=== PATIENT | male | born 1995 | race American Indian/Alaskan Native ===

== ENCOUNTER 2018-08-03 21:39 | Emergency (ER) | payer SELFPAY ==
[2018-08-03] MEDS ORDERED: BENADRYL IV ONE (22:51)
[2018-08-03] MEDS ORDERED: PEPCID IV ONE (22:51)
[2018-08-03] MEDS ORDERED: SOLU-Medrol IV ONE (22:51)
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
[2018-08-04 00:59] VITALS: BP 129/81
== END 2018-08-04 01:06 | disposition home or self-care (01) ==
LOC: ED 21:39
DX: T78.40XA Allergy, unspecified, initial encounter (principal); L29.9 Pruritus, unspecified; J45.909 Unspecified asthma, uncomplicated; F17.200 Nicotine dependence, unspecified, uncomplicated; F12.10 Cannabis abuse, uncomplicated; X58.XXXA Exposure to other specified factors, initial encounter
CPT/HCPCS: 96374; 96375; 99291; J1200; J2930

== ENCOUNTER 2020-03-25 09:20 | Emergency (ER) | payer SELFPAY ==
[2020-03-25 10:02] VITALS: BP 119/63
[2020-03-25] MEDS ORDERED: HYDROcodone/ACETAMINOPHEN 10-325MG TAB PO ONE (11:24)
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
== END 2020-03-25 12:38 | disposition home or self-care (01) ==
LOC: ED 09:20
DX: S13.4XXA Sprain of ligaments of cervical spine, initial encounter (principal); S29.012A Strain of muscle and tendon of back wall of thorax, initial encounter; S00.03XA Contusion of scalp, initial encounter; S20.212A Contusion of left front wall of thorax, initial encounter; J45.909 Unspecified asthma, uncomplicated; Z88.6 Allergy status to analgesic agent; Z79.899 Other long term (current) drug therapy; V49.59XA Passenger injured in collision with other motor vehicles in traffic accident, initial encounter; Y92.410 Unspecified street and highway as the place of occurrence of the external cause; Y93.89 Activity, other specified; Y99.8 Other external cause status
CPT/HCPCS: 70450; 72070; 72125

== ENCOUNTER 2021-09-13 14:45 | Emergency (ER) | payer OTHER ==
[2021-09-13 15:37] VITALS: BP 134/76
[2021-09-13] MEDS ORDERED: diphenhydrAMINE 50 MG/ML VIAL IM ONE (15:52)
[2021-09-13] MEDS ORDERED: dexAMETHasone 4 MG/ML VIAL IM STA (15:52)
--- NOTE | 2021-09-13 16:08 | Emergency Department Report ---
ED General Adult HPI - General Chief complaint: Sore Throat Stated complaint: OBJECT STUCK IN THROAT Time Seen by Provider: 09/13/21 15:50 Source: patient Mode of arrival: Ambulatory Limitations: No Limitations - History of Present Illness Initial comments: 26-year-old -Al[place]ian male patient presents with complaints of possible turkey bone being lodged in his throat today. He states he has pain with swallowing and with breathing in his throat. No shortness of breath per patient, swelling, or fever/chills/sweats. He rates his pain as a 7/10 in severity. Known drug allergies include aspirin. Past medical history includes asthma Severity scale (0 -10): 5 - Related Data Previous Rx's Medication Instructions Recorded Last Taken Type Famotidine [Pepcid] 40 mg PO QHS #5 tablet 08/04/18 Unknown Rx Prednisone [predniSONE 10 mg 10 mg PO .TAPER #1 tab.ds.pk 08/04/18 Unknown Rx (6-Day Pack, 21 Tabs)] diphenhydrAMINE [Benadryl CAP] 25 mg PO Q8HR PRN #20 capsule 08/04/18 Unknown Rx Acetaminophen [Acetaminophen 8 650 mg PO Q8H PRN #12 tablet.er 03/25/20 Unknown Rx Hour] Cyclobenzaprine [Flexeril] 10 mg PO QHS PRN #10 tablet 03/25/20 Unknown Rx Famotidine [Pepcid] 20 mg PO BID 7 Days #14 tablet 09/13/21 Unknown Rx predniSONE [Deltasone] 20 mg PO BID 2 Days #4 tab 09/13/21 Unknown Rx traMADoL [Ultram 50 MG tab] 50 mg PO Q6HR PRN #6 tablet 09/13/21 Unknown Rx Allergies Allergy/AdvReac Type Severity Reaction Status Date / Time aspirin Allergy Shortness Verified 09/13/21 15:30 of Breath ED Review of Systems ROS: Stated complaint: OBJECT STUCK IN THROAT Other details as noted in HPI Constitutional: denies: chills, fever, malaise ENT: throat pain Respiratory: denies: cough, shortness of breath Cardiovascular: denies: chest pain Gastrointestinal: denies: nausea, vomiting Skin: denies: rash, lesions, change in color Neurological: denies: headache ED Past Medical Hx - Past Medical History Hx Asthma: Yes Additional medical history: Allergic reaction (intubation) - Social History Smoking Status: Never Smoker Substance Use Type: None - Medications Home Medications: Home Medications Medication Instructions Recorded Confirmed Last Taken Type Famotidine [Pepcid] 40 mg PO QHS #5 tablet 08/04/18 Unknown Rx Prednisone [predniSONE 10 mg 10 mg PO .TAPER #1 tab.ds.pk 08/04/18 Unknown Rx (6-Day Pack, 21 Tabs)] diphenhydrAMINE [Benadryl CAP] 25 mg PO Q8HR PRN #20 capsule 08/04/18 Unknown Rx Acetaminophen [Acetaminophen 8 650 mg PO Q8H PRN #12 tablet.er 03/25/20 Unknown Rx Hour] Cyclobenzaprine [Flexeril] 10 mg PO QHS PRN #10 tablet 03/25/20 Unknown Rx Famotidine [Pepcid] 20 mg PO BID 7 Days #14 tablet 09/13/21 Unknown Rx predniSONE [Deltasone] 20 mg PO BID 2 Days #4 tab 09/13/21 Unknown Rx traMADoL [Ultram 50 MG tab] 50 mg PO Q6HR PRN #6 tablet 09/13/21 Unknown Rx ED Physical Exam - General Limitations: No Limitations General appearance: alert, in no apparent distress - Head Head exam: Present: atraumatic, normocephalic - Eye Eye exam: Present: normal appearance. Absent: scleral icterus - ENT ENT exam: Present: normal orophraynx - Neck Neck exam: Present: tenderness (Mild tenderness to palpation of the right anterior esophageal area without obvious swelling), full ROM - Respiratory Respiratory exam: Present: normal lung sounds bilaterally. Absent: respiratory distress - Cardiovascular Cardiovascular Exam: Present: regular rate, normal rhythm - Neurological Exam Neurological exam: Present: alert - Psychiatric Psychiatric exam: Present: normal affect, normal mood - Skin Skin exam: Present: warm, dry, intact, normal color. Absent: rash ED Course Vital Signs 09/13/21 15:31 Temperature 98.6 F Pulse Rate 79 Respiratory 18 Rate Blood Pressure 134/76 [Right] O2 Sat by Pulse 98 Oximetry ED Medical Decision Making - Radiology Data Radiology results: report reviewed CT neck wo con INDICATION / CLINICAL INFORMATION: 26 years Male; possible foreign body throat. TECHNIQUE: Contiguous thin cut axial images obtained through the neck. Sagittal and coronal reconstructions performed by the technologist. All CT scans at this location are performed using CT dose reduction for ALARA by means of automated exposure control. COMPARISON: None available. FINDINGS: No radiopaque foreign body appreciated. MUCOSAL SPACE: Prominent soft tissue is seen in the roof the nasopharynx, presumably related to reactive adenoidal tissue. Similarly, prominent palatine tonsils and lingual tonsillar tissue noted- also felt to be reactive. Please clinically correlate. Otherwise, the nasopharynx, oropharynx and vallecula, oral cavity and floor of mouth, hypopharynx, and larynx are grossly normal. Note, the esophagus is only seen to the level of the manubrium. Fluid is seen within the esophagus. LYMPH NODES: No significant adenopathy appreciated. SALIVARY GLANDS: Parotid, submandibular, and visualized sublingual glands are within normal limits. There is no evidence of sialolith. THYROID GLAND: Unremarkable. PARANASAL SINUSES: Mucous retention cyst/polyp seen in both maxillary antra - right greater than left. Mild to moderate mucosal thickening in the ethmoids. Partial opacification of the mastoids with small air-fluid levels identified. No coalescence of air cells seen. There may be minimal middle ear cavity involvement as well. SPINE: No significant abnormality of the cervical spine appreciated. VASCULAR STRUCTURES: Vascular structures are grossly normal in appearance. ADDITIONAL FINDINGS: Surrounding soft tissues are otherwise grossly normal. IMPRESSION: 1. No definitive signs of radiopaque foreign body appreciated. - Medical Decision Making 26-year-old -Algerian male patient presents with complaints of possible turkey bone being lodged in his throat today. He states he has pain with swallowing and with breathing in his throat. No shortness of breath per patient, swelling, or fever/chills/sweats. He rates his pain as a 7/10 in severity. Known drug allergies include aspirin. Past medical history includes asthma X-ray and CT are negative for any acute abnormalities or foreign bodies. Pat ient given Decadron and Benadryl, he states his symptoms have mildly improved. Will treat with prednisone and recommend follow-up with ENT. Discussed in great detail signs and symptoms that should prompt immediate return to the ED with patient who verbalizes understanding Critical care attestation.: If time is entered above; I have spent that time in minutes in the direct care of this critically ill patient, excluding procedure time. ED Disposition Clinical Impression: Sensation of foreign body in esophagus Disposition: 01 HOME / SELF CARE / HOMELESS Is pt being admited?: No Condition: Stable Instructions: Sore Throat Prescriptions: predniSONE [Deltasone] 20 mg PO BID 2 Days #4 tab Famotidine [Pepcid] 20 mg PO BID 7 Days #14 tablet traMADoL [Ultram 50 MG tab] 50 mg PO Q6HR PRN #6 tablet PRN Reason: Pain Referrals: PRIMARY CARE, [Primary Care Provider] - 3-5 Days ANGELICA CARABALLO MD [Staff Physician] - 3-5 Days
--- NOTE | 2021-09-13 16:21 | XRay Report ---
SOFT TISSUE NECK HISTORY: Dysphasia. Possible foreign body. FINDINGS: Negative for prevertebral soft tissue swelling, soft tissue gas or epiglottic abnormality. No bony abnormality or visualized radiopaque foreign body. Signer Name: Isrrael Griffin MD Signed: 09/13/2021 4:16 PM Workstation Name: [id number]
--- NOTE | 2021-09-13 18:33 | Cat Scan Report ---
CT neck wo con INDICATION / CLINICAL INFORMATION: 26 years Male; possible foreign body throat. TECHNIQUE: Contiguous thin cut axial images obtained through the neck. Sagittal and coronal reconstructions perf ormed by the technologist. All CT scans at this location are performed using CT dose reduction for AL BRYAN by means of automated exposure control. COMPARISON: None available. FINDINGS: No radiopaque foreign body appreciated. MUCOSAL SPACE: Prominent soft tissue is seen in the roof the nasopharynx, presumably related to react jeyson adenoidal tissue. Similarly, prominent palatine tonsils and lingual tonsillar tissue noted-also f elt to be reactive. Please clinically correlate. Otherwise, the nasopharynx, oropharynx and vallecula, oral cavity and floor of mouth, hypopharynx, an d larynx are grossly normal. Note, the esophagus is only seen to the level of the manubrium. Fluid is seen within the esophagus. LYMPH NODES: No significant adenopathy appreciated. SALIVARY GLANDS: Parotid, submandibular, and visualized sublingual glands are within normal limits. T here is no evidence of sialolith. THYROID GLAND: Unremarkable. PARANASAL SINUSES: Mucous retention cyst/polyp seen in both maxillary antra - right greater than left . Mild to moderate mucosal thickening in the ethmoids. Partial opacification of the mastoids with sma ll air-fluid levels identified. No coalescence of air cells seen. There may be minimal middle ear cav ity involvement as well. SPINE: No significant abnormality of the cervical spine appreciated. VASCULAR STRUCTURES: Vascular structures are grossly normal in appearance. ADDITIONAL FINDINGS: Surrounding soft tissues are otherwise grossly normal. IMPRESSION: 1. No definitive signs of radiopaque foreign body appreciated. Signer Name: Alejandro Buckley MD, III Signed: 09/13/2021 6:28 PM Workstation Name: [email or web address]
== END 2021-09-13 19:40 | disposition home or self-care (01) ==
LOC: ED 14:45
DX: R09.89 Other specified symptoms and signs involving the circulatory and respiratory systems (principal); T18.108A Unspecified foreign body in esophagus causing other injury, initial encounter; J45.909 Unspecified asthma, uncomplicated; Z91.09 Other allergy status, other than to drugs and biological substances; X58.XXXA Exposure to other specified factors, initial encounter; Y93.89 Activity, other specified; Y92.89 Other specified places as the place of occurrence of the external cause; Y99.8 Other external cause status
CPT/HCPCS: 70360; 70490; 96372; 99284; J1100; J1200